=== PATIENT | female | born 1970 | race Two or more races ===

== ENCOUNTER 2025-02-01 20:10 | Emergency (ER) | payer MEDICAID ==
[~2025-02-01] VITALS: Ht 152.4 cm; Wt 67.6 kg
[~2025-02-01 20:10] MED LIST: AMOX-430 PO; FERR-68 PO; PANT40TA2 PO; SUCR1TAB31 PO
[2025-02-01] MEDS ORDERED: KETOROLAC TROMETHAMINE 15 MG/ML VIAL ONE (21:06)
[2025-02-01] MEDS: KETOROLAC TROMETHAMINE 15 MG/ML VIAL IM ONE (21:06)
[2025-02-01] MEDS ORDERED: ACETAMINOPHEN ES 500 MG TABLET ONE (21:06)
[2025-02-01] MEDS: ACETAMINOPHEN ES 500 MG TABLET PO ONE (21:07)
[2025-02-01 22:57] VITALS: BP 144/86; TEMP 98.3; O2SAT 97
[2025-02-01] MEDS ORDERED: HYDROCODONE/APAP 5/325MG TABLET ONE (23:34)
[2025-02-01] MEDS: HYDROCODONE/APAP 5/325MG TABLET PO ONE (23:35)
== END 2025-02-01 23:59 | disposition home or self-care (01) ==
LOC: ER 20:13
DX: M25.552 Pain in left hip (principal); I12.0 Hypertensive chronic kidney disease with stage 5 chronic kidney disease or end stage renal disease; E11.22 Type 2 diabetes mellitus with diabetic chronic kidney disease; N18.6 End stage renal disease; Z79.899 Other long term (current) drug therapy; W01.0XXA Fall on same level from slipping, tripping and stumbling without subsequent striking against object, initial encounter; Y93.9 Activity, unspecified; Y92.039 Unspecified place in apartment as the place of occurrence of the external cause; Y99.8 Other external cause status
CPT/HCPCS: 99285; 73700; 96372; 73080; 73503; 73564; 73110; J1885; 73502